=== PATIENT | male | born 1985 | race Caucasian/White ===

== ENCOUNTER 2024-04-19 14:02 | Emergency (ER) | payer BC, SELFPAY ==
[2024-04-19 14:08] VITALS: BP 148/101; PULSE 85; RESP 18; TEMP 36.6; O2SAT 96; BMI 29.0
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
[2024-04-19 14:47] VITALS: BP 138/101; PULSE 97; O2SAT 99
== END 2024-04-19 14:48 | disposition home or self-care (01) ==
PROVIDERS: Emergency Provider Emergency Medicine
DX: S61.412A Laceration without foreign body of left hand, initial encounter (principal); S51.812A Laceration without foreign body of left forearm, initial encounter; X58.XXXA Exposure to other specified factors, initial encounter
CPT/HCPCS: 12004; 99282